=== PATIENT | male | born 1955 | race Caucasian/White ===

== ENCOUNTER 2023-05-26 21:54 | Emergency (ER) | payer OTHER ==
[2023-05-26 23:12] LABS: Absolute Lymphocytes (CBC) 1.8 K/uL (0.7-4.9); Hematocrit 43.5 % (39.6-49.0); Lymphocytes % 15.5 % (15.3-44.8); MCV 89.3 fL (80-100); MPV 7.2 fL (7.6-11.3); RBC Red Blood Cell Count 4.88 M/uL (4.33-5.43)
[2023-05-26 23:17] LABS: Protime INR 1.29
[2023-05-26 23:35] LABS: Albumin 4.1 g/dL (3.4-5.0); Bilirubin Direct 0.1 mg/dL (0-0.2); Bilirubin Indirect, Calculated 0.5 mg/dL (0.2-0.8); Bilirubin Total 0.6 mg/dL (0.2-1.0); Magnesium 2.1 mg/dL (1.6-2.4); Potassium 4.2 mEq/L (3.5-5.1); Protein, Total 7.5 g/dL (6.4-8.2); Troponin High Sensitivity 4.4 pg/mL (<58.9)
[2023-05-26] MEDS ORDERED: NA CHLORIDE 0.9% 1,000 ML ONE (23:49)
[2023-05-27 00:54] LABS: Barbiturates NEGATIVE (NEGATIVE); Benzodiazepines NEGATIVE (NEGATIVE); Cocaine NEGATIVE (NEGATIVE); METHAMPHETAM NEGATIVE (NEGATIVE); Methadone NEGATIVE (NEGATIVE); Opiates NEGATIVE (NEGATIVE); Phencyclidine NEGATIVE (NEGATIVE); THC Cannibis POSITIVE (NEGATIVE)
[2023-05-27] MEDS ORDERED: DERMABOND SKIN ADHESIVE TOP ONE ×2 (02:05→02:12)
--- NOTE | 2023-05-27 02:10 | ER ---
Nurse's Notes [facility] Name: Jordan Wyman Age: 68 yrs Sex: Male : 1955 Arrival Date: 05/26/2023 Time: 21:54 Bed 20 Private MD: Diagnosis: Heat syncope;Hypotension, unspecified;Facial Laceration;Concussion with loss of consciousness of 30 minutes or less Presentation: 05/26 22:18 Chief complaint: EMS states: 68 year old male reports having an episode of syncope. ha1 when we arrived his blood pressure was 86/58 and after 250 of NS blood pressure when up to 112/59. During the fall he injured his right side of forehead. 22:18 Coronavirus screen: Vaccine status: Patient reports receiving the 2nd dose of the covid ha1 vaccine. Provade. Ebola Screen: No symptoms or risks identified at this time. Initial Sepsis Screen: Does the patient meet any 2 criteria? No. Patient's initial sepsis screen is negative. Does the patient have a suspected source of infection? No. Patient's initial sepsis screen is negative. Risk Assessment: Do you want to hurt yourself or someone else? Patient reports no desire to harm self or others. Onset of symptoms was May 26, 2023. 22:18 Method Of Arrival: EMS: [facility] ha1 22:18 Acuity: BIRDIE 3 ha1 Triage Assessment: 22:18 General: Appears comfortable, Behavior is calm, cooperative. Pain: Complains of pain in ha1 head. 22:18 Neuro: Level of Consciousness is awake, alert, obeys commands, Oriented to person, ha1 place, time, situation. Cardiovascular: Patient's skin is warm and dry. Respiratory: Airway is patent Respiratory effort is even, unlabored, Respiratory pattern is regular, symmetrical. GI: No signs and/or symptoms were reported involving the gastrointestinal system. : No signs and/or symptoms were reported regarding the genitourinary system. Derm: Skin is pink, warm \T\ dry. Musculoskeletal: No signs and/or symptoms reported regarding the musculoskeletal system. Circulation, motion, and sensation intact. Range of motion: intact in all extremities. Historical: - Allergies: 22:25 No Known Allergies; ha1 - PMHx: 22:25 Hypertensive disorder; ha1 - Immunization history:: Adult Immunizations unknown. - Social history:: Smoking status: Patient/guardian denies using tobacco, the patient reports quitting approximately 30 years ago. Screenin/05 00:00 [facility] ED Fall Risk Assessment (Adult) History of falling in the last 3 months, ha1 including since admission Yes- single mechanical fall (1 pt) Confusion or Disorientation No (0 pts) Intoxicated or Sedated No (0 pts) Impaired Gait No (0 pts) Mobility Assist Device Used No (0 pt) Altered Elimination No (0 pt) Score/Fall Risk Level 0 - 2 = Low Risk Oriented to surroundings, Maintained a safe environment, Educated pt \T\ family on fall prevention, incl call for assistance when getting out of bed, Hourly rounding (assess needs \T\ fall precautionary measures) done. Abuse screen: Denies threats or abuse. Denies injuries from another. Nutritional screening: No deficits noted. Tuberculosis screening: No symptoms or risk factors identified. Assessment: 05/26 22:18 Reassessment: see triage assessment. ha1 23:00 Reassessment: Patient and/or family updated on plan of care and expected duration. Pain ha1 level reassessed. Patient is alert, oriented x 3, equal unlabored respirations, skin warm/dry/pink. Patient states symptoms have improved. 05/27 00:00 Reassessment: Patient and/or family updated on plan of care and expected duration. Pain ha1 level reassessed. Patient is alert, oriented x 3, equal unlabored respirations, skin warm/dry/pink. 01:00 Reassessment: Patient and/or family updated on plan of care and expected duration. Pain ha1 level reassessed. Patient is alert, oriented x 3, equal unlabored respirations, skin warm/dry/pink. talking to family member. Vital Signs: 05/26 22:18 BP 111 / 73; Pulse 77; Resp 16 S; Temp 97.8(O); Pulse Ox 96% on R/A; Weight 78.93 kg; ha1 Height 6 ft. 0 in. ; Pain 6/10; 23:20 BP 119 / 76; Pulse 78; Resp 18 S; Pulse Ox 99% on R/A; ha1 05/27 00:00 BP 116 / 77; Pulse 75; Resp 17 S; Pulse Ox 99% on R/A; ha1 01:00 BP 116 / 74; Pulse 74; Resp 16 S; Pulse Ox 98% on R/A; ha1 01:20 BP 129 / 86 Supine; Pulse 80; Resp 17 S; Pulse Ox 100% on R/A; ha1 01:23 BP 134 / 83 Standing; Pulse 81; Resp 17 S; Pulse Ox 100% on R/A; ha1 01:23 BP 116 / 78 Sitting; Pulse 75; Resp 17 S; Pulse Ox 100% on R/A; ha1 05/26 22:18 Body Mass Index 23.60 (78.93 kg, 182.88 cm) ha1 05/26 22:18 Pain Scale: Adult ha ED Course: 05/26 22:18 Patient arrived in ED. ha1 22:18 Patient has correct armband on for positive identification. Placed in gown. Bed in low ha1 position. Call light in reach. Side rails up X 1. Side rails up X2. 22:18 Arm band placed on Patient placed in an exam room, on a stretcher, on pulse oximetry. ll3 22:51 Triage completed. ha1 22:51 Vesta Urena PA-C is PHCP. sb4 22:51 Adria Gomez MD is Attending Physician. sb4 23:55 Chest Single View XRAY In Process Unspecified. EDMS 05/27 00:00 Ana Morrison RN is Primary Nurse. ha1 00:04 Head Brain Wo Cont CT In Process Unspecified. EDMS 01:08 Maintain EMS IV. Dressing intact. Good blood return noted. Site clean \T\ dry. Gauge \T\ mach[place] 1 site: 20 onrm left AC. 02:38 No provider procedures requiring assistance completed. IV discontinued, intact, ll3 bleeding controlled, No redness/swelling at site. Pressure dressing applied. 02:39 Provided Education on: laceration care. ll3 Administered Medications: 05/26 23:15 Drug: NS 0.9% IV 1000 ml Route: IV; Rate: 1 bolus; Site: left antecubital; 1 05/27 02:39 Follow up: Response: No adverse reaction; IV Status: Completed infusion; IV Intake: ll3 1000ml Medication: 02:38 VIS not applicable for this client. ll3 Intake: 02:39 IV: 1000ml; Total: 1000ml. ll3 Outcome: 02:10 Discharge ordered by . sb4 02:38 Discharged to home ambulatory, with significant other. ll3 02:38 Condition: stable 02:38 Discharge instructions given to patient, significant other, Instructed on discharge instructions, follow up and referral plans. Demonstrated understanding of instructions, follow-up care. 02:39 Patient left the ED. ll3 Signatures: Dispatcher [employer] Matthieu Seay RN RN ll3 Ana Morrison RN RN ha1 Vesta Urena, PA-C PA-C sb4 Corrections: (The following items were deleted from the chart) 01:04 08/04 22:18 General: Appears comfortable, Behavior is calm, cooperative, ha1 ha1
--- NOTE | 2023-05-27 02:10 | EDPHYS ---
Physician Documentation [facility] Name: Jordan Wyman Age: 68 yrs Sex: Male : 1955 Arrival Date: 05/26/2023 Time: 21:54 Bed 20 Private MD: ED Physician Adria Gomez HPI: 05/27 02:22 This 68 yrs old Male presents to ER via EMS with complaints of syncope. sb4 02:29 68-year-old male with past medical history of hypertension presents via EMS after a sb4 syncopal episode and resulting head trauma. He states that he was at an out side gathering when all of a sudden he started feeling lightheaded and dizzy and he fell from a seated position and hit his head on the concrete. He does report loss of consciousness. He is not on any blood thinners. EMS reported that he was hypotensive when they arrived-80s/50s but improved quickly with IV fluids. Patient complains of a mild headache upon arrival but otherwise has no complaints and is oriented x4. Historical: - Allergies: 05/26 22:25 No Known Allergies; ha1 - PMHx: 22:25 Hypertensive disorder; ha1 - Immunization history:: Adult Immunizations unknown. - Social history:: Smoking status: Patient/guardian denies using tobacco, the patient reports quitting approximately 30 years ago. ROS: 05/27 02:29 Constitutional: Negative for fever, chills, and weight loss, Eyes: Negative for injury, sb4 pain, redness, and discharge, ENT: Negative for injury, pain, and discharge, Cardiovascular: Negative for chest pain, palpitations, and edema, Respiratory: Negative for shortness of breath, cough, wheezing, and pleuritic chest pain, Abdomen/GI: Negative for abdominal pain, nausea, vomiting, diarrhea, and constipation, Back: Negative for injury and pain, MS/Extremity: Negative for injury and deformity. Skin: Positive for hematoma, laceration(s), swelling, of the right side of forehead. Neuro: Positive for dizziness, headache, syncope, Negative for altered mental status, numbness, weakness. All other systems are negative. Exam: 02:29 Constitutional: This is a well developed, well nourished patient who is awake, alert, sb4 and in no acute distress. Head/Face: Normocephalic, atraumatic. Eyes: Extra-ocular motions intact. Periorbital areas with no swelling, redness, or edema. ENT: Mucous membranes moist. Cardiovascular: Regular rate and rhythm with a normal S1 and S2. Respiratory: Lungs have equal breath sounds bilaterally, clear to auscultation and percussion. No rales, rhonchi or wheezes noted. No increased work of breathing, no retractions or nasal flaring. Abdomen/GI: Soft, non-tender, no distension. MS/ Extremity: Pulses equal, no cyanosis. Neurovascular intact. Full, normal range of motion. Neuro: Awake and alert, GCS 15, oriented to person, place, time, and situation. Cranial nerves II-XII grossly intact. Motor strength 5/5 in all extremities. Sensory grossly intact. Cerebellar exam normal. Normal gait. 02:29 Skin: injury, laceration(s), the wound is approximately 3 cm(s), of the right side of forehead, that can be described as clean, no foreign body, linear, with mild bleeding. Vital Signs: 05/26 22:18 BP 111 / 73; Pulse 77; Resp 16 S; Temp 97.8(O); Pulse Ox 96% on R/A; Weight 78.93 kg; ha1 Height 6 ft. 0 in. ; Pain 6/10; 23:20 BP 119 / 76; Pulse 78; Resp 18 S; Pulse Ox 99% on R/A; ha1 05/27 00:00 BP 116 / 77; Pulse 75; Resp 17 S; Pulse Ox 99% on R/A; ha1 01:00 BP 116 / 74; Pulse 74; Resp 16 S; Pulse Ox 98% on R/A; ha1 01:20 BP 129 / 86 Supine; Pulse 80; Resp 17 S; Pulse Ox 100% on R/A; ha1 01:23 BP 134 / 83 Standing; Pulse 81; Resp 17 S; Pulse Ox 100% on R/A; ha1 01:23 BP 116 / 78 Sitting; Pulse 75; Resp 17 S; Pulse Ox 100% on R/A; ha1 05/26 22:18 Body Mass Index 23.60 (78.93 kg, 182.88 cm) [facility] 05/26 22:18 Pain Scale: Adult [facility] Laceration: 02:29 Wound Repair of 3cm ( 1.2in ) subcutaneous laceration to right side of forehead. Linear sb4 shaped.. Distal neuro/vascular/tendon intact. Wound prep: Moderate cleansing with betadine by nurse. Skin closed with Dermabond Adhesive skin closure using Dermabond. Dressed with non-adherent dressing. Patient tolerated well. MDM: 05/26 22:51 Patient medically screened. sb4 05/27 02:33 Differential Diagnosis Hypotension, dehydration, alcohol intoxication, rhabdomyolysis, sb4 epidural hematoma, subdural hemorrhage, concussion, skull fracture. Data reviewed: vital signs, nurses notes, lab test result(s), EKG, radiologic studies, and as a result, I will discharge patient. Consideration of Admission/Observation Escalation of care including admission/observation considered. Historians other than the Patient: Spouse/Significant Other: . Care significantly affected by the following chronic conditions: Hypertension. Counseling: I had a detailed discussion with the patient and/or guardian regarding: the historical points, exam findings, and any diagnostic results supporting the discharge/admit diagnosis, lab results, radiology results, to return to the emergency department if symptoms worsen or persist or if there are any questions or concerns that arise at home. Special discussion: Based on the patient's history, exam and DX evaluation, there is no indication for emergent intervention or inpatient TX. It is understood by the patient/guardian that if the SXs persist or worsen they need to return immediately for re-evaluation. I discussed with the patient/guardian in detail that at this point there is no indication for admission to the hospital. It is understood, however, that if the symptoms persist or worsen the patient needs to return immediately for re-evaluation. ED course: After lengthy discussion, patient revealed that he has lost at least 20 pounds over the past few months intentionally with dietary modifications and therefore his blood pressure has improved. He has still been taking his lisinoprilhydrochlorothiazide and believes that it has been lowering his blood pressure. I instructed him that his blood pressure was probably borderline low with combination of the dehydration and heat exposure tonight which caused a syncopal episode. I instructed him to discontinue his antihypertensive until he can follow-up with his primary care doctor. He understands to monitor his blood pressure daily at home and to monitor for any signs of confusion, altered mental status regarding his head injury.. 05/26 22:52 Order name: Basic Metabolic Panel; Complete Time: 23:35 sb4 / 22:52 Order name: CBC with Diff; Complete Time: 23:22 sb4 05/26 22:52 Order name: Hepatic Function; Complete Time: 23:35 sb4 05/26 22:52 Order name: Magnesium; Complete Time: 23:35 sb4 05/26 22:52 Order name: Protime (+inr); Complete Time: 23:22 sb4 05/26 22:52 Order name: Ptt, Activated; Complete Time: 23:22 sb4 05/26 22:52 Order name: Troponin High Sensitivity; Complete Time: 23:35 sb4 05/26 22:52 Order name: UDS; Complete Time: 00:55 sb4 05/26 22:55 Order name: ETOH Level; Complete Time: 23:27 sb4 05/26 22:52 Order name: Chest Single View XRAY sb4 05/26 22:52 Order name: Head Brain Wo Cont CT sb4 05/26 22:52 Order name: EKG; Complete Time: 22:53 sb4 05/26 22:52 Order name: Cardiac monitoring; Complete Time: 23:37 sb4 05/26 22:52 Order name: EKG - Nurse/Tech; Complete Time: 00:00 sb4 05/26 22:52 Order name: IV Saline Lock; Complete Time: 23:07 sb4 05/26 22:52 Order name: Labs collected and sent; Complete Time: 23:07 sb4 05/26 22:52 Order name: O2 Per Protocol; Complete Time: 23:07 sb4 05/26 22:52 Order name: O2 Sat Monitoring; Complete Time: 23:07 sb4 05/27 01:07 Order name: Orthostatics; Complete Time: 01:30 sb4 05/27 01:07 Order name: Wound Care; Complete Time: 01:30 sb4 05/27 01:41 Order name: Dermabond; Complete Time: 02:20 sb4 05/27 02:33 Order name: Wound dressing; Complete Time: 02:38 sb4 EC:22 Rate is 78 beats/min. Rhythm is regular, Normal Sinus Rhythm. MA interval is normal at sb4 180 msec. QRS interval is normal at 96 msec. QT interval is normal at 382 msec. No Q waves. T waves are Normal. No ST changes noted. Clinical impression: Normal ECG. Interpreted by me. Reviewed by me. Administered Medications: 05/26 23:15 Drug: NS 0.9% IV 1000 ml Route: IV; Rate: 1 bolus; Site: left antecubital; ha1 05/27 02:39 Follow up: Response: No adverse reaction; IV Status: Completed infusion; IV Intake: ll3 1000ml Disposition Summary: 05/27/23 02:10 Discharge Ordered Location: Home sb4 Problem: new sb4 Symptoms: are resolved sb4 Condition: Stable sb4 Diagnosis - Heat syncope sb4 - Hypotension, unspecified sb4 - Facial Laceration sb4 - Concussion with loss of consciousness of 30 minutes or less sb4 Followup: sb4 - With: Private Physician - When: As needed - Reason: Recheck today's complaints, Continuance of care, Re-evaluation by your physician Discharge Instructions: - Discharge Summary Sheet sb4 - Near-Syncope, [id number] sb4 - Facial Laceration, [id number] sb4 - Concussion, Adult, [id number] sb4 - Hypotension, [id number] sb4 Forms: - Medication Reconciliation Form sb4 - Thank You Letter sb4 - Antibiotic Education sb4 - Prescription Opioid Use sb4 - Patient Portal Instructions sb4 Signatures: Dispatcher [employer] Ana Carey RN RN ha1 Vesta Urena PA-C PA-C sb4 Matthieu Sin RN ll3
[2023-05-27 03:51] VITALS: TEMP 97.8
[2023-05-27 03:56] VITALS: O2SAT 100
[2023-05-27 03:57] VITALS: BP 116/78
--- NOTE | 2023-05-27 23:07 | RAD REPORT ---
EXAM DESCRIPTION: Chest single view CLINICAL HISTORY: Syncope.. TECHNIQUE: AP portable chest x-ray upright on 05/26/2023, at 23: 44. COMPARISON: None. FINDINGS: Heart: Normal size and configuration. Mediastinal Structures: Normal and midline.. There is a small radiopaque linear body overlying the thoracic inlet at the midline. This measures 1. 0 x 0.2 cm. An ingested foreign body cannot be excluded. Lung [place]: No active disease. Pulmonary Vascularity: Normal. Pleural Space: No active disease. Bony Structures: Normal. IMPRESSION: 1. No acute posttraumatic changes. 2. Questionable radiopaque foreign body overlying the midline of the thoracic inlet.. Electronically signed by: Michael Ag MD 05/27/2023 12:00 AM CDT Due to temporary technical issues with the PACS/Fluency reporting system, reports are being signed by the in house radiologists without review as a courtesy to insure prompt reporting. The interpreting radiologist is fully responsible for the content of the report.
--- NOTE | 2023-05-27 23:09 | RAD REPORT ---
EXAM DESCRIPTION: CT Head Brain WO Contrast CLINICAL HISTORY: Syncope. TECHNIQUE: 5 mm axial images of the intracranial structures were obtained without intravenous contra st. Coronal and sagittal reformatted images were obtained. COMPARISON: None.. DOSE OPTIMIZATION: This facility uses dose optimization techniques as appropriate to perform exams, i ncluding at least one of the following techniques: 1. Automated exposure control. 2. Adjustment of the mA and/or kV according to patient size (this includes techniques or standardized protocols for targeted exams where dose is matched to the indication/reason for exam, i.e. extremiti es or head). 3. Use of iterative reconstructive technique. FINDINGS: No abnormal acute extracerebral fluid collections are demonstrated. The cortical sulci, ventricles, and cisterns are within normal limits. There are no areas of altered attenuation to suggest acute hemorrhage, acute infarct, or mass lesio n. The visualized portions of the paranasal sinuses and mastoid air cells are clear. IMPRESSION: Normal study. Electronically signed by: Michael Ag MD 05/27/2023 12:11 AM CDT Due to temporary technical issues with the PACS/Fluency reporting system, reports are being signed by the in house radiologists without review as a courtesy to insure prompt reporting. The interpreting radiologist is fully responsible for the content of the report.
--- NOTE | 2023-05-29 13:07 | EKG ---
Test Date: 2023-05-26 Test Time: 23:50:11 Alterations Supervisor: AUBREE MEASUREMENT RESULTS: Intervals: Rate: 78 DC: 180 QRSD: 96 QT: 382 QTc: 435 [place]: P: 55 DC: 180 QRS: 57 T: 51 INTERPRETIVE STATEMENTS: Normal sinus rhythm Normal ECG No previous ECG available for comparison Electronically Signed On 05-29-23 13:05:12 CDT by Josh Bradshaw
== END 2023-05-27 02:39 | disposition home or self-care (01) ==
LOC: ER 21:54
PROC: 0HQ1XZZ Repair Face Skin, External Approach (ICD-10-PCS; principal; 2023-05-27)
DX: I95.9 Hypotension, unspecified (principal); S06.0X1A Concussion with loss of consciousness of 30 minutes or less, initial encounter; S01.81XA Laceration without foreign body of other part of head, initial encounter
CPT/HCPCS: 96361; 93005; 85025; 80048; 36415; 83735; 85610; 80076; 85730; 84484; 80307; 70450; 71045; 96360; 99284; 82077; 12013; J7030